=== PATIENT | male | born 1970 | race Caucasian/White ===

== ENCOUNTER 2024-07-22 18:41 | Emergency (ER) | payer OTHER, SELFPAY ==
--- NOTE | ~2024-07-22 | XR_ITS ---
XR shoulder LT min 2V Ordering provider: Kavin Smallwood APRN History: . fall- left shoulder/ proximal humerous pain . Comparison: None. FINDINGS: BONES: Comminuted fracture involving the proximal metaphysis of the left humerus and extending to the humeral head. JOINT SPACES: The acromioclavicular joint is normal. The glenohumeral joint is normal. SOFT TISSUES: Normal. IMPRESSION: Comminuted fracture in the area of the proximal metaphysis of the left humerus and extending to the h umeral head Reviewed, dictated and finalized at location A. IMPRESSION: Comminuted fracture in the area of the proximal metaphysis of the left humerus and extending to the humeral head
--- NOTE | 2024-07-22 18:45 | ED_ITS ---
HPI - Fall General Chief Complaint: Extremity Injury, Upper Stated Complaint: Fall Time Seen by Provider: 07/22/24 18:45 Source: patient Mode of arrival: ambulatory Limitations: no limitations History of Present Illness HPI Narrative: Mr. Clarke is a 54-year-old male patient presenting to the clinic today with complaints a ground level fall injuring his left shoulder. He reports he fell around 530 today when the wind took his hat he was trying to get his hat and fell over. Is having severe pain to the left shoulder/upper arm. Slight bruising noted and he thinks it may be dislocated. Related Data Allergies Allergy/AdvReac Type Severity Reaction Status Date / Time erythromycin base (From Allergy Unknown Unknown Verified 07/22/24 19:01 Erythrocin) Review of Systems Review of Systems: Pertinent positives per HPI. Patient denies any fever, chills, rash, headache, visual changes, dizziness, cough, runny nose, sore throat, shortness of breath, chest pain, palpitations, nausea, vomiting, diarrhea, constipation, abdominal pain, or any urinary issues. PMFSH Comments At the time of my signature, I reviewed and agree with the nursing past medical, surgical, social, and family history. There is no relevant family history pertinent to the patient complaint. Exam Narrative: General: Well-developed, well nourished, in no apparent distress Head: Normocephalic, atraumatic. Cardio: Regular rate and rhythm, s1 and s2 normal, no murmur appreciated. Resp: Clear to auscultation bilaterally, no rhonchi, rales, wheezing or rubs. Musculoskeletal: No deformity, bruising/swelling noted to the left anterior proximal humerus, tender to palpation over the proximal humerus and humeral head, unable to lift arm without severe pain, muscle strength strong and equal, peripheral pulse strong, no edema, no cyanosis, normal gait and station Course Course Emergency Course: Portions of this record may have been created with voice recognition software. Level of Care: Express Care Visit Vital Signs Vital signs: Vital Signs Temperature 36.4 C 07/22/24 19:02 Pulse Rate 76 07/22/24 19:02 Respiratory Rate 22 H 07/22/24 19:02 Blood Pressure 110/76 07/22/24 19:02 Pulse Oximetry 97 07/22/24 19:02 Temperature 36.4 C 07/22/24 19:02 Pulse Rate 76 07/22/24 19:02 Respiratory Rate 22 H 07/22/24 19:02 Blood Pressure 110/76 07/22/24 19:02 Pulse Oximetry 97 07/22/24 19:02 Vital signs reviewed MDM - Fall MDM Narrative Medical decision making narrative: At the time of visit patient is resting comfortably on the exam table. Patient appears to be nontoxic. Diagnostics: X-ray shows a closed comminuted fracture of the left proximal metaphyses/humeral head Plan: Patient has comminuted fracture of the left humeral head and proximal humerus. Arm sling was applied. Discussed patient's case with Dr. Limon and he would like patient to follow-up in the office. [place] and is planning to go back home. Recommend follow-up with his PCP/orthopedic provider in that area if he is not able follow-up with Dr. Limon. Prescription for hydrocodone and Zofran was sent to the pharmacy. Supportive measures were discussed with the patient and they voiced understanding discharge instructions and agrees to treatment plan. Return precautions reviewed Differential Diagnosis Differential diagnosis: Likely dislocation of shoulder region, concussion with loss of consciousness and other (Humeral head fracture, humerus fracture, elbow fracture) Discharge Plan Discharge Clinical Impression: Fracture of humeral head, closed Qualifiers: Encounter type: initial encounter Laterality: left Qualified Code(s): S42.292A - Other displaced fracture of upper end of left humerus, initial encounter for closed fracture Patient Disposition: Home, Self-Care Condition: Stable Instructions: Antibiotic Form, Arm Fracture in Adults (ED) Additional Instructions: X-ray shows a closed fracture of the proximal left humerus/humeral head Rest, ice, elevate, and wear arm sling as directed Tylenol/motrin for pain as discussed. Take hydrocodone as needed for moderate to severe pain Follow up with orthopedic provider as soon as possible-may contact a orthopedic provider up near [place] where you live or follow-up with Dr. Limon in [place], [place] Patient Language: [place] Prescriptions: New ondansetron 4 mg tablet,disintegrating 4 mg PO Q6H PRN (Reason: nausea and vomiting) 5 Days Qty: 20 0RF hydrocodone-acetaminophen 7.5-325 mg tablet 1 tablet PO Q6H PRN (Reason: pain) 5 Days Qty: 20 0RF Follow-up/Referrals: Best Limon MD [Physician] - (Closed fracture of the left proximal humeral head) UNKNOWN,DOCTOR [Primary Care Provider] - Stand Alone Forms: Work/School Release IP Time of Disposition: 19:42 Quality NIHSS Nursing Documentation ED NIHSS nursing documentation: reviewed/agree
[2024-07-22 19:02] VITALS: BP 110/76; PULSE 76; RESP 22; TEMP 36.4; O2SAT 97
== END 2024-07-22 19:50 | disposition home or self-care (01) ==
PROVIDERS: Emergency Provider Nurse Practitioner Family
DX: S42.292A Other displaced fracture of upper end of left humerus, initial encounter for closed fracture (principal); W19.XXXA Unspecified fall, initial encounter
CPT/HCPCS: 73030; 99214; A4565; G0463